=== PATIENT | male | born 1965 | race Caucasian/White ===

== ENCOUNTER 2018-09-23 11:25 | Emergency (ER) | payer SELFPAY ==
[2018-09-23 11:26] VITALS: BP 137/88; PULSE 73; RESP 18; TEMP 36.6; O2SAT 99; BMI 19.2
--- NOTE | 2018-09-23 11:37 | ED.RN ---
pt states has been to [place] emergency department and was then sent to eye dr Yilast week
--- NOTE | 2018-09-23 12:20 | ED.DCSUM_ITS ---
History of Present Illness Chief Complaint: Eye Problem Informant: Patient Location: Left Eye Onset: Weeks - 1 Context: Sudden Onset - injury -- metal dust in eye while sweeping a floor after drilling metal Timing: Continuous Current Severity: Severe Maximum Severity: Severe Worsened by: light Relieved by: nothing Associated Symptoms - Eyes: Drainage, Foreign body sensation, Pain, Photophobia, Redness Visual Changes: left: Blurred vision, Cloudy vision History of injury: Yes, Foreign body Visual correction: - - occasional reading glasses. no contacts. Narrative: Patient states he had this injury 1 week ago today. The next day, he went to the [place] ER. He was sent to an eye doctor and saw him here in [place] the same day, he does not know who it was. He was given a sample bottle of some drops and advised to come back the next day, however the patient states he barely looked at me and thought he was better off letting his eye heal. He states the doctor in the ER used a small device that sounds like a Gonzalez lamp, he found no foreign body, and the eye doctor found no foreign body either. The drops ran out. He states 2 days after seeing the doctor, he physically removed a piece of metal from his eye with his fingers. He got a letter in the mail yesterday, Monday, advising that he return, which he has not done yet. He states now the pain is so severe, that he does not know what else to do. He used to have normal vision in his left eye, now he can see light but can make nothing out because everything is so cloudy/blurry. He is having lots of watering, and it is giving him rhinorrhea and burning in his left naris. He denies any systemic symptoms. He states he feels like there is a lot of pressure in his eye. Past Medical History - Allergies and Home Meds Allergies/Adverse Reactions: Allergies No Known Allergies Allergy (Verified 09/23/18 11:28) Smoking Status: Never smoker Review of Systems General: Denies: Chills, Fever Eyes: Reports: Blurred vision - left - and pain, watering, redness Skin: Denies: Rash, Wounds Neurological: Denies: Headache, Weakness, Numbness Physical Exam Visual Acuity: right: 20/20, 20/50 - OS: fingers at 1-2 feet only Visual Acuity: Uncorrected Eyelid: Left eyelid everted, Erythema left eyelid, - - small flat mettalic FB upper, flowed down to medial canthus Right Conjunctiva/Sclera: Normal inspection Right Cornea: Normal inspection - grossly Left Cornea: Tetracaine instilled - to allow exam, Fluorescein dye uptake - ulcer, Foreign body - several small pieces of shiny metallic FB present -- 2 on ulcer, one on medial upper lid margin, one that flowed from upper medial conj to medial canthus -- all gently removed w/ cotton swab, Ulcer - approx 4-5mm, nasal corneal, w/ mucousy discharge. no dendritic lesions., - - cornea is clouded, making assessment for cell/flare very limited. anterior chamber appears intact, deep. Extraocular Motion: Normal exam, No pain, No palsy Anterior chamber: - - No hyphema. Small hypopyon OS. Vital Signs/Narrative: Vital Signs Temp Pulse Resp BP Pulse Ox 09/23/18 11:26 98 F 73 18 137/88 H 99 General: Well nourished, Well developed Head: Normocephalic, Atraumatic Skin: Normal color, No rash Neurological: Alert, Oriented x3, Cranial nerves II-XII grossly intact, Normal Strength, Normal Sensation Diagnostic/Tx/Re-eval - Treatment and Re-Evaluation Foreign body removal: Cotton tip swab Irrigation: NS Tetracaine: left eye - Medical Decision Making Very concerned about this infected cornea and possibility of endophthalmitis. Discussed immediately with Dr. Jeffers, who came to evaluate the patient in the emergency department. He recommended that we obtain a stat Gram stain and culture of the ulcer, which I did myself gently. Seen by Dr. Jeffers, who states the patient appears to have a bad corneal ulcer, but does not appear to have endophthalmitis and does not require transfer to a higher level of care at this time. He does recommend moxifloxacin drops, which are not available at this hospital so we are giving him a prescription for that, but in case the patient does not fill it, given his history recently of noncompliance, he is also getting ciprofloxacin drops to use here. He is to follow-up with ophthalmology tomorrow in the office, he was given all those instructions already. Procedures Procedure(s): Left eye foreign body removal -- as noted above, after tetracaine topical anesthesia, several small metallic foreign bodies removed gently with cotton swab. Some more embedded in soupy mucousy discharge on the corneal ulcer. Eye was gently flushed with sterile saline afterwards, no Zack lens used. No detectable FB present on reevaluation. ED Disposition - Plan for ED Patient: Disposition: Home or Assisted Living Diagnosis: Corneal ulcer of left eye Instructions: ED Ulcer Cornea Prescriptions: Moxifloxacin Ophthalmic [Vigamox Ophth] 1 drp LEFT EYE . Q1H WHILE AWAKE #1 bottle Referrals: Tom Jeffers MD [STAFF PHYSICIAN] - 1 Day
[2018-09-23] MEDS: Fluorescein 1 MG STRIP 1 STRIP LEFT EYE (13:26)
[2018-09-23] MEDS: Tetracaine 0.5% Ophthalmic Bottle 1 DRP LEFT EYE (13:27)
[2018-09-23] MEDS: Gentamicin Sulfate 1 OPTH.BTL 2 DRP OPHTHALMIC (13:27)
[2018-09-23] MEDS: Ciprofloxacin 0.3% 2.5ml Bottle 2 DRP OPHTHALMIC (13:27)
[2018-09-23 13:35] VITALS: RESP 18
== END 2018-09-23 13:48 | disposition home or self-care (01) ==
PROVIDERS: Emergency Provider Emergency Medicine
DX: H16.002 Unspecified corneal ulcer, left eye (principal)
CPT/HCPCS: 87070; 87075; 87205; 99283; J7040

== ENCOUNTER 2019-02-14 23:14 | Emergency (ER) | payer SELFPAY ==
[2019-02-14 23:14] VITALS: BP 154/96; PULSE 58; RESP 18; TEMP 36.4; O2SAT 99; BMI 18.0
--- NOTE | 2019-02-14 23:25 | US_ITS ---
HISTORY: Right testicular pain for 3 days. Severe today. Pain radiates from right flank. Palpable area. 87 images. Findings: The right testis measures 4.5 x 2.7 x 1.5 cm. Echotexture is homogeneous. Color Doppler images demonstrate flow to right testicular parenchyma. Pulse-wave Doppler images demonstrate arterial flow and suggest probable venous flow as well. The right epididymal head measures 9 x 7 x 10 mm. Color Doppler imaging over the right epididymal head is nondiagnostic for flow. The left testis measures 4.8 x 1.8 x 2.7 cm. Palmer scale imaging of the left testis is homogeneous. Color Doppler images demonstrate flow to the left testicular parenchyma. Pulse-wave Doppler imaging demonstrates arterial flow and suggest venous flow to the left testicular parenchyma. The left epididymal head measures 8 x 8 x 10 mm. Color Doppler imaging over the left epididymal head demonstrates flow. Left varicocele is small. Small left epididymal head cyst. US/Testicular with Arterial Flow IMPRESSION: Normal. The area of palpable abnormality proves to be a 4 mm epididymal head cyst at 0027 Reported and signed by: Greg Dixon MD Electronically Signed: Greg Dixon MD at 0:26 EDT Tel , Service support ,
--- NOTE | 2019-02-14 23:40 | ED.DCSUM_ITS ---
History of Present Illness Chief Complaint: Flank Pain Informant: Patient Narrative: Presents with right-sided testicle pain. Is been bothering for last 3 days. No nausea vomiting. Is also has some pain in his right lower flank rating around his testicle. He denies any swelling. He is never had this before. Denies any urinary symptoms. No history of STD. Current severity is mild to moderate. No home treatment. No history of testicular torsion. No history of epididymitis. No sexual activity for the last 2 months. Past Medical History - Allergies and Home Meds Allergies/Adverse Reactions: Allergies No Known Allergies Allergy (Verified 09/23/18 11:28) Primary Care Physician: Care Physician,No Primary [Primary Care Provider] - Prior records reviewed: Yes Past Medical History: None Surgical History: no surgical history Smoking Status: Never smoker Alcohol: None Drugs: None Review of Systems General: Denies: Chills, Fever, Sweats Eyes: Denies: Visual changes - bilaterally, Diplopia ENT: Denies: Rhinorrhea, Sore throat Cardiovascular: Denies: Chest pain, Palpitations Respiratory: Denies: Dyspnea, Cough, Dyspnea on exertion Gastrointestinal: Reports: Abdominal pain. Denies: Nausea, Vomiting, Diarrhea, Melena, Hematochezia Genitourinary: Reports: - - see hpi. Denies: Dysuria, Hematuria, Frequency Musculoskeletal: Denies: Back pain, Extremity Pain Skin: Denies: Rash, Wounds Neurological: Denies: Headache, Weakness, Numbness Physical Exam Vital Signs/Narrative: Vital Signs Temp Pulse Resp BP Pulse Ox 02/14/19 23:14 97.6 F L 58 L 18 154/96 H 99 General: Well nourished, Well developed, No Acute Distress Head: Normocephalic, Atraumatic Eyes: Perrl, EOMI ENT: Moist mucous membranes, No rhinorrhea Neck: Supple, Nontender Cardiovascular: Regular rate, Regular rhythm, No murmurs Respiratory: No distress, CTA bilaterally, Chest nontender Abdomen: Soft, Nondistended, Normal bowel sounds, Tender - Tenderness right inguinal without hernia. Negative for: Nontender : - - Tenderness in the right epididymis and testicle. Normal lie. Normal cremasteric reflex. No swelling Back: Nontender, Normal Inspection Extremities: Nontender, No edema Skin: Normal color, No rash Neurological: Alert, Oriented x3, Cranial nerves II-XII grossly intact, Normal Strength, Normal Sensation Psychological: Normal affect, Normal Mood Diagnostic/Tx/Re-eval - Medical Decision Making Given a dose of Toradol. Lab work and ultrasound of the testicle obtained. Work shows no acute abnormalities. Urine shows no infection. Thing for gonorrhea and chlamydia is negative. There is no penile lesions. The patient has just tenderness to his epididymis. He has no abnormalities on his ultrasound except for epididymal cyst versus spermatocele. At this time I think this is likely the cause. He will use tight fitting underwear. He will be given a short course of pain medication. His epididymis shows normal size therefore I do not think he has epididymitis. Testicular torsion has been ruled out. He will follow-up with urology ED Disposition - Plan for ED Patient: Disposition: Home or Assisted Living Diagnosis: Spermatocele of epididymis Instructions: Blank Diagnosis Form Prescriptions: Hydrocodone Bitart/Apap 5-325 [[place] 5MG-325MG] 1 - 2 tab PO Q6H PRN PRN 3 Days #10 tab PRN Reason: Pain Prescription Printed Referrals: José Miguel Cervantes MD [STAFF PHYSICIAN] -
[2019-02-14] MEDS: Ketorolac 15 MG/ML Vial IV (23:56)
[2019-02-15 00:11] LABS: Mucous, Urine 0 SEEN /hpf (<or=2+); Red Blood Cells-Urine 0 SEEN /hpf (0-5); White Blood Cells 0 SEEN /hpf (0-5)
[2019-02-15 00:12] LABS: Color, Urine Yellow (Yellow); Glucose, Dipstick Normal (Normal); Ketone-Dipstick Negative (Negative); Leukocyte Esterase-Dipstick Negative /ul (Negative); Nitrite-Dipstick Negative (Negative); Occult Blood-Urine Negative /ul (Negative); Protein-Dipstick Negative (Negative); Urine Bilirubin Dipstick Negative (Negative); Urine Clarity Clear (Clear); Urine Urobilinogen Normal (Normal); Urine pH 6.5 (5.0 - 8.0)
[2019-02-15 00:21] LABS: Absolute Lymphocyte Count 1.87 X10^3/uL (0.83-4.51); Absolute Neutrophil Count 3.8 X10^3/uL (2.0-7.7); Basophil# 0.09 X10^3/uL; Basophil% 1.4 % (0-1); Eosinophil# 0.15 X10^3/uL; Eosinophils% 2.3 % (0-5); Hematocrit 39.1 % (40-54); Lymphocyte # 1.87 X10^3/ul (4.0); Lymphocyte % 28.9 % (19-41); Mean Corp Hgb Conc 33.2 g/dL (32-36); Mean Corpuscular Hgb 30.4 pg (27.0-32.0); Mean Corpuscular Volume 91.6 fL (80-94); Mean Platelet Vol. 10.6 fl (6.2-12.0); Monocyte# 0.54 X10^3/uL; Monocyte% 8.4 % (0-10); NRBC Flagged by Analyzer 0 % (0-5); Neutrophil # 3.79 X10^3/uL (2.7-7.7); Neutrophil % 58.7 % (47-70); Platelet Count 192 K/mm3 (150-450); RBC Distribution Width CV 12.4 % (11.6-14.6); RBC Distribution Width SD 41.5 fl (35.1-43.9); Red Blood Count 4.27 M/mm3 (4.6-6.2); White Blood Count 6.5 K/mm3 (4.4-11.0)
[2019-02-15 00:22] LABS: Bacteria RARE /hpf (None Seen); Squamous Epithelial Cells - UA 0-5 SEEN /hpf (0-5)
[2019-02-15 00:35] LABS: Anion Gap 3 (5-15); BUN 16 mg/dL (7-18); Calcium,Total 8.5 mg/dL (8.5-10.1); Chloride 107 mmol/L (98-107); Creatinine, Serum 0.94 mg/dL (0.70-1.30); EST Glomerular Filtration Rate 89 mL/min (>60); Est Glom Filt Rate - Afr Amer 108 mL/min (>60); Estimated Creatinine Clearance 71.13 ml/min; Glucose 84 mg/dL (74-106); Potassium 4.2 mmol/L (3.5-5.1); Sodium Level 139 mmol/L (136-145)
[2019-02-15 01:14] VITALS: RESP 17
[2019-02-15 01:46] LABS: Chlamydia Trachomatis by PCR Negative (Negative); Neisserai gonorrhoeae by PCR Negative (Negative)
[2019-02-15 01:47] LABS: Probe Check PASS; Sample Adequacy Control PASS; Specimen Processing Control PASS
[2019-02-15 02:04] VITALS: BP 148/78; PULSE 72; RESP 16; O2SAT 97
== END 2019-02-15 02:05 | disposition home or self-care (01) ==
PROVIDERS: Emergency Provider Emergency Medicine
DX: N43.41 Spermatocele of epididymis, single (principal)
CPT/HCPCS: 76870; 80048; 81001; 85025; 87491; 87591; 93976; 96374; 99283; A4216

== ENCOUNTER 2020-12-28 10:21 | Emergency (ER) | payer MEDICAID, SELFPAY ==
[2020-12-28 10:22] VITALS: BP 113/69; PULSE 69; RESP 16; TEMP 36.9; O2SAT 96; BMI 19.1
[2020-12-28 10:24] VITALS: BP 113/69; PULSE 69; RESP 16; TEMP 36.9; O2SAT 96
--- NOTE | 2020-12-28 10:44 | EDS_ITS ---
HPI History of Present Illness Chief Complaint: Other, Pain/Inj Narrative Narrative: 55-year-old male presenting with right inguinal pain. Patient states he had hernia repair by Dr. Garrido in [place] 5 days ago. He does not recall feeling a pop and he states he has been taking it easy postoperatively however that his hernia has returned. Patient states it is tender to palpation in the right inguinal area. He denies nausea or vomiting. He denies fever or chills. There are surgical incision site has not had any sort of infection or bleeding. PFSH PFSH Home Medications oxycodone 5 mg PO Q8H PRN 5 Days #15 cap 12/28/20 [Rx Last Taken Unknown] Allergy/AdvReac Type Severity Reaction Status Date / Time No Known Allergies Allergy Verified 12/28/20 10:24 Social History Smoking Status: Never smoker ROS ROS ED Constitutional Constitutional ED: Denies chills or fever(s) ENT ENT ED: Denies rhinorrhea or sore throat Cardiovascular Cardiovascular: Denies chest pain or palpitations Respiratory/Chest Respiratory/Chest: Denies cough, dyspnea or sputum Gastrointestinal Gastrointestinal: Reports abdominal pain; Denies nausea or vomiting Genitourinary Genitourinary ED: Reports other Details: Right inguinal pain and swelling ; Denies dysuria or hematuria Musculoskeletal Musculoskeletal: Denies arthralgias or myalgias Integumentary Denies abscess or rash EXAM Physical Exam Const Vital Signs: 12/28/20 10:22 12/28/20 10:24 Temperature 98.5 F 98.5 F Temperature Source Temporal Temporal Pulse Rate 69 69 Respiratory Rate 16 16 Blood Pressure 113/69 113/69 Blood Pressure Mean 83 83 Pulse Ox 96 96 Oxygen Delivery Method Room Air Room Air Positive well nourished General Appearance ED: NAD HEENT Reports moist mucous membranes Negative for trauma Eyes PERRL and EOMs intact bilaterally Resp normal respiratory effort and clear to auscultation bilaterally Cardio regular rate and regular rhythm Narrative: Tender mass in right pubic region. This is nonpulsatile. There is no erythema or induration. Neuro oriented x3 Sensorium / Orientation: alert Psych mental status grossly normal Mood & Affect: Negative for depressed or tearful Skin no rashes or lesions noted MDM MDM MDM Narrative Medical decision making narrative: Patient arrives with hernia. I did speak with Dr. Garrido who came to the room and at bedside reduced of the hernia. He will follow up with her outpatient. She will prescribe him pain medication. Patient discharged home in stable condition. Impression: 1. Inguinal hernia Discharge Plan Triage Chief Complaint: Other, Pain/Inj ED Provider: Huseyin Manzo Dx/Rx/DC Orders Instructions: ED Hernia (Adult) Prescriptions: New oxycodone 5 mg capsule 5 mg PO Q8H PRN (Reason: pain) 5 Days Qty: 15 RF: 0 Primary Care Provider: Jena Garrido Referrals: Jena Garrido MD [Primary Care Provider] - Activity Restrictions/Additional Instructions: Recommended pain control regimen - May take 600 mg ibuprofen (Motrin) and then in 3-4 hours, may take 650 mg acetaminophen (Tylenol), then in 3-4 hours may take 600 mg ibuprofen, then in 3- 4 hours may take 650 mg acetaminophen and so on for 2-3 days May take narcotic pain medication for pain that is not controlled by above and at night for comfort through the night Leave dressings in place May shower, do not scrub in the areas of the dressings as they may unravel. Do not soak - no tub baths/swimming Ice applied to areas of discomfort may help as much as tolerated No lifting/pushing/pulling greater than 10 pounds for a month. Regular diet as tolerated, drink plenty of fluids. Use over the counter laxatives as needed. Also consider use of mineral oil - 1 tablespoon 2-3 times per day, this will slick up the stools making them easier to pass. For inguinal hernia repairs - sit in a Lazy-Boy type chair or similar position for comfort and elevate legs, place lots of ice packs in the affected area. If you have scrotal swelling, place a folded towel on top of the upper part of your thighs and place scrotum on top of this to allow for fluid to return back into the torso. Your follow up appointment has already been scheduled. Office number is If any questions, please call my office at and ask the stemming machine operator for the general surgery nurses desk Disposition Disposition: Home, Self Care
[2020-12-28] MEDS: morphine 8 MG/ML Syringe 6 MG IM (10:51)
[2020-12-28 11:59] VITALS: BP 112/64; PULSE 67; RESP 16; O2SAT 98
--- NOTE | 2020-12-28 14:35 | PCM.PN.BLA ---
Progress Note I saw Mr. Jimenez in the ED today. He presents with complaint of right groin swelling since surgery. He underwent right inguinal hernia repair with mesh done on December 24. He states that he has not done any strenuous activity. He notes swelling in the area and pain in the area. When he started noting burning pain, he became concerned and presented to ED. Upon examination, he has swelling in the right groin area, not unlike his initial presentation with a right inguinal hernia prior to surgery. I did a bedside ultrasound of the area, it seems to be a fluid filled pocket. I have reassured patient and his , this is more than likely a large seroma in the area, due to the defect left from having had a large hernia in the area. I have recommended continued copious ice to the area. I have prescribed more pain medications. I have recommended OTC laxatives, patient does admit he has been straining for bowel movements. I will follow along with patient later this week.
--- NOTE | 2020-12-28 14:39 | DCINST_ITS ---
Discharge Instructions Follow Up Care Test Results: This is printed hours later by me due to the slowness of the [employer] system Discharge Plan Triage Chief Complaint: Other, Pain/Inj ED Provider: Huseyin Manzo Dx/Rx/DC Orders Instructions: ED Hernia (Adult) Prescriptions: New oxycodone 5 mg capsule 5 mg PO Q8H PRN (Reason: pain) 5 Days Qty: 15 RF: 0 Primary Care Provider: Jena Garrido Referrals: Jena Garrido MD [Primary Care Provider] - Activity Restrictions/Additional Instructions: Recommended pain control regimen - May take 600 mg ibuprofen (Motrin) and then in 3-4 hours, may take 650 mg acetaminophen (Tylenol), then in 3-4 hours may take 600 mg ibuprofen, then in 3- 4 hours may take 650 mg acetaminophen and so on for 2-3 days May take narcotic pain medication for pain that is not controlled by above and at night for comfort through the night Leave dressings in place May shower, do not scrub in the areas of the dressings as they may unravel. Do not soak - no tub baths/swimming Ice applied to areas of discomfort may help as much as tolerated No lifting/pushing/pulling greater than 10 pounds for a month. Regular diet as tolerated, drink plenty of fluids. Use over the counter laxatives as needed. Also consider use of mineral oil - 1 tablespoon 2-3 times per day, this will slick up the stools making them easier to pass. For inguinal hernia repairs - sit in a Lazy-Boy type chair or similar position for comfort and elevate legs, place lots of ice packs in the affected area. If you have scrotal swelling, place a folded towel on top of the upper part of your thighs and place scrotum on top of this to allow for fluid to return back into the torso. Your follow up appointment has already been scheduled. Office number is If any questions, please call my office at and ask the reciprocating drill operator for the general surgery nurses desk Disposition Disposition: Home, Self Care Discharge Date/Time: 12/28/20 12:02
== END 2020-12-28 12:02 | disposition home or self-care (01) ==
PROVIDERS: Emergency Provider Student in an Organized Health Care Education/Training Program; PCP Surgery
DX: K40.90 Unilateral inguinal hernia, without obstruction or gangrene, not specified as recurrent (principal)
CPT/HCPCS: 96372; 99282

== ENCOUNTER 2021-01-14 12:20 | Day surgery (SDC) | payer MEDICAID, SELFPAY ==
--- NOTE | 2021-01-12 19:11 | PCM.HP.BLA ---
History and Physical Date of Admission: 01/14/21 HISTORY AND PHYSICAL Amarjit Holguin Arms 1965 CHIEF COMPLAINT: possible recurrent RIH ? HPI: The patient is a 55 year old male presents with right groin swelling, he is s/p right inguinal hernia repair with mesh on 12/24/2020 This may be a recurrence. He has consented to inguinal exploration and possible recurrent right inguinal hernia repair. He denies obstructive GI/ symptoms.. PAST MEDICAL HISTORY GERD (gastroesophageal reflux disease) ? PAST SURGICAL HISTORY see above ? ? ? PAST INJURIES Right chest blunt trauma/multiple rib fractures, closed head injury, right shoulder dislocation Current Outpatient Medications acetaminophen-codeine (TYLENOL-COD #3) 300-30 mg per tablet Take 1 tablet by mouth every 6 hours as needed for Pain. gabapentin (NEURONTIN) 300 mg capsule Take 1 capsule by mouth three times daily. tiZANidine HCl (ZANAFLEX) 4 mg capsule Take 1 capsule by mouth three times daily as needed. amitriptyline (ELAVIL) 10 mg tablet Take 1 tablet by mouth daily at bedtime. omeprazole (PRILOSEC) 10 mg capsule Take 1 capsule by mouth once daily. thiamine (VITAMIN B1) 50 mg tablet Take 1 tablet by mouth once daily. cyanocobalamin (VITAMIN B-12) 1,000 mcg tab Take 1,000 mcg by mouth once daily. ALLERGIES: Patient has no known allergies. PERSONAL HISTORY: Tobacco Use ? Smoking status: Never Smoker ? Smokeless tobacco: Never Used Substance Use Topics ? Alcohol use: No? ? Comment: no etoh for five months ? Drug use: No FAMILY HISTORY Alcohol/Drug Father ? REVIEW OF SYSTEMS: General: The patient denies fatigue, NOTES weight loss, denies weight gain, denies feeling hot, and denies feelings of cold. Eyes: The patient denies glaucoma, NOTES eye injury/surgery, does not wear glasses or contacts. Ear/Nose/Throat: The patient denies allergies, denies hayfever, denies ear infections, and denies bloody noses. Cardiovascular: The patient denies chest pain, denies heart disease, denies high blood pressure,denies cardiac stent, denies prior heart attack, denies irregular heart beat, denies high cholesterol, denies poor circulation, denies heart failure, other cardiac issues, denies claudication, denies cold feet, denies peripheral arterial stent. Respiratory: The patient denies tuberculosis, denies pneumonia, denies frequent cough, denies pulmonary embolism, denies shortness of breath, and denies coughing up blood. Gastrointestinal: The patient denies difficulty swallowing, denies acid reflux, denies ulcers, denies vomiting, denies jaundice/hepatitis, denies gallbladder problems, denies black or tarry stools, denies hemorrhoids, denies bleeding from rectum, denies diverticulitis, NOTES constipation, denies diarrhea, denies loss of stool control, and denies hernias. Kidney/Bladder: The patient denies kidney stones, denies urine infections, and denies bloody urine. Skin: The patient denies a history of skin cancer, denies bleeding/changing moles, and denies a history of skin rash. Neurologic: The patient denies a history of epilepsy/convulsions, denies headaches, denies head/spinal injuries, and denies stroke/TIA. Psychiatric: The patient denies psychiatric medications, NOTES depression, and denies voices, denies substance abuse. Endocrine: The patient denies thyroid disorders, denies diabetes, and denies hormonal problems. Hematologic: The patient denies a history of bruising, denies bleeding, and denies anemia, denies blood clots. Infections: The patient NOTES a history of measles and mumps, denies rheumatic fever, and denies sexually transmitted diseases. Musculoskeletal: The patient NOTES back pain/injury, NOTES back problems, denies sciatica, NOTES knee/foot trouble, NOTES arthritis, or denies gout. ? PHYSICAL EXAMINATION: General: The patient is 55 year old male, well nourished, well hydrated in no acute distress. The patient is oriented to time, place, and person. VITALS: Blood pressure 118/62, pulse 90, temperature 37 ?C (98.6 ?F), height 175.3 cm (5' 9), weight 53.5 kg (118 lb), SpO2 98 %. Body mass index is 17.43 kg/m?. Head ? Normocephalic. EOM intact with sclera clear and no icterus noted. Neck - full range of motion, supple with no jugular venous distention noted. Trachea is midline. Lungs ? left chest wall deformity, normal breath sounds. No rales/rhonchi/wheezing noted. No labored breathing noted, such as retractions. No cough heard. Heart ? normal S1 and S2 auscultated. No rubs/clicks/murmurs noted. Regular rate. Abdomen ? soft and benign. Normal bowel sounds. No abdominal bruits noted. Genitalia ? normal male phallus, testes in normal anatomical position and no masses noted, possible inguinal hernia - not reducible, no left inguinal hernia noted even with valsalva-like maneuvers Extremities ? no calf tenderness noted. No pitting edema noted. Skin ? normal skin integrity. Neurological ? gait normal, no focal deficits noted. Psych ? calm and appropriate ? IMPRESSION: right inguinal hernia repair ? PLAN: I have discussed the above with the patient and his who is present with him. I have offered right inguinal exploration - possible recurrent right inguinal hernia repair with mesh I have explained the procedure to the patient. I have counseled the patient as to the risks of the procedure, including but not limited to: infection, bleeding, injury to any blood vessels/nerves, scar tissue, injury to bowel/bladder, injury to the spermatic cord and/or testicle, chronic groin pain, recurrence of hernia, wound infections, complications of anesthesia, etc. ? the patient understands. The patient wishes to proceed. I have answered all questions to the patient?s satisfaction and the patient has no further questions. Return to Clinic: The patient is instructed to follow-up with me after the procedure ? Jena Garrido MD HISTORY AND PHYSICAL ? Amarjit Jimenez 1965 ? ? REFERRING PHYSICIAN: MD Jhon ? CHIEF COMPLAINT: Consult (Possible Right Inguinal Hernia) ? HPI: The patient is a 55 year old male presents with right inguinal hernia. He has noted the hernia for the past 6 months and it has been enlarging. He denies incarceration, but he does not increasing difficulty to reduce the hernia. He also notes difficulties with bowel evacuation and urination when the hernia is protruding. He has had multiple traumas but doesn't like to see a doctor. He takes marijuana on a daily basis for musculoskeletal pain, but denies using any other drugs He denies TOB use. He does not want the COVID vaccine. ? ? PAST MEDICAL HISTORY Diagnosis Date ? GERD (gastroesophageal reflux disease) ? ? PAST SURGICAL HISTORY Procedure Laterality Date ? NONE ? PAST INJURIES Right chest blunt trauma/multiple rib fractures, closed head injury, right shoulder dislocation ? ? Current Outpatient Medications Medication Sig ? acetaminophen-codeine (TYLENOL-COD #3) 300-30 mg per tablet Take 1 tablet by mouth every 6 hours as needed for Pain. ? gabapentin (NEURONTIN) 300 mg capsule Take 1 capsule by mouth three times daily. ? tiZANidine HCl (ZANAFLEX) 4 mg capsule Take 1 capsule by mouth three times daily as needed. ? amitriptyline (ELAVIL) 10 mg tablet Take 1 tablet by mouth daily at bedtime. ? omeprazole (PRILOSEC) 10 mg capsule Take 1 capsule by mouth once daily. ? thiamine (VITAMIN B1) 50 mg tablet Take 1 tablet by mouth once daily. ? cyanocobalamin (VITAMIN B-12) 1,000 mcg tab Take 1,000 mcg by mouth once daily. ? ? ALLERGIES: Patient has no known allergies. ? PERSONAL HISTORY: Social History ? Tobacco Use ? Smoking status: Never Smoker ? Smokeless tobacco: Never Used Substance Use Topics ? Alcohol use: No ? ? Comment: no etoh for five months ? Drug use: No FAMILY HISTORY Problem Relation Age of Onset ? Alcohol/Drug Father ? ? The review of systems data was entered by the nurse and reviewed by me ? Nursing Notes: Oneida Cohen LPN 12/16/2020 4:16 PM Signed REVIEW OF SYSTEMS: General: The patient denies fatigue, NOTES weight loss, denies weight gain, denies feeling hot, and denies feelings of cold. Eyes: The patient denies glaucoma, NOTES eye injury/surgery, does not wear glasses or contacts. Ear/Nose/Throat: The patient denies allergies, denies hayfever, denies ear infections, and denies bloody noses. Cardiovascular: The patient denies chest pain, denies heart disease, denies high blood pressure,denies cardiac stent, denies prior heart attack, denies irregular heart beat, denies high cholesterol, denies poor circulation, denies heart failure, other cardiac issues, denies claudication, denies cold feet, denies peripheral arterial stent. Respiratory: The patient denies tuberculosis, denies pneumonia, denies frequent cough, denies pulmonary embolism, denies shortness of breath, and denies coughing up blood. Gastrointestinal: The patient denies difficulty swallowing, denies acid reflux, denies ulcers, denies vomiting, denies jaundice/hepatitis, denies gallbladder problems, denies black or tarry stools, denies hemorrhoids, denies bleeding from rectum, denies diverticulitis, NOTES constipation, denies diarrhea, denies loss of stool control, and denies hernias. Kidney/Bladder: The patient denies kidney stones, denies urine infections, and denies bloody urine. Skin: The patient denies a history of skin cancer, denies bleeding/changing moles, and denies a history of skin rash. Neurologic: The patient denies a history of epilepsy/convulsions, denies headaches, denies head/spinal injuries, and denies stroke/TIA. Psychiatric: The patient denies psychiatric medications, NOTES depression, and denies voices, denies substance abuse. Endocrine: The patient denies thyroid disorders, denies diabetes, and denies hormonal problems. Hematologic: The patient denies a history of bruising, denies bleeding, and denies anemia, denies blood clots. Infections: The patient NOTES a history of measles and mumps, denies rheumatic fever, and denies sexually transmitted diseases. Musculoskeletal: The patient NOTES back pain/injury, NOTES back problems, denies sciatica, NOTES knee/foot trouble, NOTES arthritis, or denies gout. When was patient's last Mammogram screening? N/A Last Colonoscopy: None Oneida Cohen LPN ? ? PHYSICAL EXAMINATION: General: The patient is 55 year old male, well nourished, well hydrated in no acute distress. The patient is oriented to time, place, and person. VITALS: Blood pressure 118/62, pulse 90, temperature 37 ?C (98.6 ?F), height 175.3 cm (5' 9), weight 53.5 kg (118 lb), SpO2 98 %. Body mass index is 17.43 kg/m?. ? Head ? Normocephalic. EOM intact with sclera clear and no icterus noted. Neck - full range of motion, supple with no jugular venous distention noted. Trachea is midline. Lungs ? left chest wall deformity, normal breath sounds. No rales/rhonchi/wheezing noted. No labored breathing noted, such as retractions. No cough heard. Heart ? normal S1 and S2 auscultated. No rubs/clicks/murmurs noted. Regular rate. Abdomen ? soft and benign. Normal bowel sounds. No abdominal bruits noted. Genitalia ? normal male phallus, testes in normal anatomical position and no masses noted, right inguinal hernia - reducible, no left inguinal hernia noted even with valsalva-like maneuvers Extremities ? no calf tenderness noted. No pitting edema noted. Skin ? normal skin integrity. Neurological ? gait normal, no focal deficits noted. Psych ? calm and appropriate ? ? Assessment IMPRESSION: right inguinal hernia repair ? PLAN: I have discussed the above with the patient and his who is present with him. I have offered right inguinal hernia repair with mesh I have explained the procedure to the patient. I have counseled the patient as to the risks of the procedure, including but not limited to: infection, bleeding, injury to any blood vessels/nerves, scar tissue, injury to bowel/bladder, injury to the spermatic cord and/or testicle, chronic groin pain, recurrence of hernia, wound infections, complications of anesthesia, etc. ? the patient understands. The patient wishes to proceed. Plan surgery for December 24 at [facility]. ? ? I have answered all questions to the patient?s satisfaction and the patient has no further questions. ? I have confirmed and edited as necessary, the PFSH and ROS obtained by others. Return to Clinic: The patient is instructed to follow-up with me after the procedure ? Jena Garrido MD
[2021-01-14] VITALS (8 sets, daily range): BP systolic 106–149; BP diastolic 73–91; PULSE 44–71; RESP 14–16; TEMP 36–36.6; O2SAT 95–99; BMI 17.4
--- NOTE | 2021-01-14 | TISS_PTH ---
PATIENT: TABATHA LILLY [place] [facility] [place][id number] AGE/SX: 55/M ROOM: RE01/14/[address]: Dr. Jena Garrido MD : 1965 BED: DIS: 01/14/2021 SPEC #: [id number] RECD: 01/14/21 14:20 STATUS: RADHA HIPOLITO #: [id number] NEETA: 01/14/21 00:[address]: Jena Garrido DEPT: SURGICAL PATHOLOGY RECD BY: Naa Wesley ENTERED: 01/14/21 15:40 SP TYPE: Tissue Bx OT DR: No Primary Care Phys Tissues: TISSUE SURGICALLY REMOVED Procedures: Frozen Section (charge) Surgery Specimen Level II Surgery Specimen Level IV HEADER OPERATION: Hydrocelectomy PRE-OP DIAGNOSIS: Right inguinal hernia TISSUE SUBMITTED: A ? Hydrocele versus bowel, FS, B ? Hydrocele sac FROZEN SECTION DIAGNOSIS A. Hydrocele versus bowel: A piece of fibrous tissue. Bowel mucosa is not seen. SJ:joan 01/14/2021 MICROSCOPIC DIAGNOSIS A. Hydrocele versus bowel, biopsy: Fibrovascular tissue with minimal chronic inflammation. See comment. B. Hydrocele sac, hydrocelectomy: Consistent with inflamed fibrous walled cyst. AM:joan 01/18/2021 COMMENT A & Bowel is not identified. A hernia sac is likely. Clinical correlation is necessary. Case has been reviewed in consultation with Dr. Kessler who concurs with the above diagnosis. IDC:MIAN MICROSCOPIC DESCRIPTION Slides are reviewed. GROSS DESCRIPTION A - Received fresh for frozen section diagnosis labeled with the patient's name is a specimen designated hydrocele versus bowel. The specimen consists of a piece of soft tissue measuring 1.5 x 2 x 0.5 cm. The entire specimen is submitted for frozen section diagnosis in one cassette. B - Received in fixative is one container labeled with the patient's name and designated hydrocele sac. The specimen consists of a pink, congested sac of soft tissue measuring 5 cm in length and 3 cm in diameter. The inner cyst wall is congested. Scratch Brusher sections are submitted in two cassettes. / SJ:joan 01/15/21 TC:5 CPT: 19067, 52658, 91231
[2021-01-14] MEDS: Lactated Ringers 1,000 ML 75 ML IV (07:00)
--- NOTE | 2021-01-14 12:32 | EKG12_ITS ---
Test Reason : PREOP Blood Pressure : / mmHG Vent. Rate : 061 BPM Atrial Rate : 061 BPM P-R Int : 170 ms QRS Dur : 080 ms QT Int : 424 ms P-R-T Axes : 081 076 082 degrees QTc Int : 426 ms Sinus rhythm with Premature atrial complexes Otherwise normal ECG No previous ECGs available Confirmed by AYALA FERNANDES, TREV ([id number]), mapping editor JIMBO ORTIZ ([id number]) on 01/19/2021 9:47:20 AM Referred By: No Primary Care Physician Confirmed By:TREV CAI MD
[2021-01-14] MEDS: Cefazolin 2 GM in 0.9% Normal Saline 100 ML IV (13:35)
[2021-01-14] MEDS: Lidocaine 1% /Epi 1:100 (50ml) 50 ML VIAL (15:00)
[2021-01-14] MEDS: Bupivacaine 0.25% 30 ML Vial (15:00)
--- NOTE | 2021-01-14 15:08 | PCM.OPRPT ---
Report of Operation Date of Procedure: 01/14/21 Pre-Operative Diagnosis: right groin swelling and pain, s/p inguinal hernia repair Post-Operative Diagnosis: right groin hydrocoele Surgery/Procedure Performed:: right hydrocoelectomy Description of Surgical Findings:: large right hydrodoele sac that was closed off Surgeon: Jena Garrido computerized mill mill recorder: Latosha Pereyra Type of Anesthesia: MAC/Supplemental/Local Specimen's removed: hydrocoele sac Estimated Blood Loss (mL): 10 ml Fluids Replaced: 1000 ml Description of Procedure: After informed consent was obtained, the patient was brought to the Operating Room. Appropriate time out protocol was followed. He was placed in the supine position on the operating room table. The patient was then placed under anesthesia. The right groin area and lower torso and genitalia were then prepped with a sterile surgical skin preparation. Sterile surgical drapes were placed. This skin and subcutaneous tissues were then widely infiltrated with the local anesthetic. A skin incision was then made with a 15 blade scalpel over the right groin swelling following along the anatomy of the inguinal canal in a transverse oblique fashion.. The incision was carried down to the subcutaneous tissues using sharp dissection. Any hemorrhage was adequately controlled with electrocautery. Division of the tissues along the incision line continued down to the external oblique fascia was identified. It was then divided along its fibers using sharp dissection carefully avoiding any injury to any blood vessels/nerves. The spermatic cord was then isolated using blunt dissection and tagged with a [place] drain. There was no hernia defect noted, but the patient was noted to have a very swollen spermatic cord with a large vesicle. This large vesicle was then carefully from the spermatic cord and because of the inflammation, there was inflammatory oozing. The vesicle was carefully from the surrounding structures and seemed to end at the entrance of the internal inguinal ring. That is, there was no lumen into the abdominal cavity. Distally, it ended in a blind pouch. It was then opened and there was serous yellow fluid within it. It was not certain what this structure was and therefore a portion of this was forwarded to pathology for frozen section to rule out possible enterocoele/small bowel/etc. The pathology returned as a fibrous capsule, this was therefore probably a hydroceole. The hydrocoele was from the surrounding structures and then at the level of the internal inguinal ring, it was ligated with a purse string suture of 3-0 vicryl. The excess sac was then transected and forwarded to pathology for analysis. The inguinal canal floor was palpated - no defect was noted. The spermatic cord was then replaced in its proper anatomical position. Hemostasis was achieved with electrocautery and surgicel. The external oblique fascia was then reapproximated over the spermatic cord to close the roof of the inguinal canal with a running 0 vicryl suture. Morelia's fascia was reapproximated with interrupted 3-0 vicryl sutures. The skin incision was reapproximated with a running 4-0 Monocryl suture. Cavilon and steristrips were placed to reinforce the skin closure and a sterile opsite dressing was applied. The patient was brought from to the Recovery Room in stable condition. Complications none noted Admit VTE Documentation VTE Present on Admission: Yes VTE Mechan Device Prophylaxis: SCD's
--- NOTE | 2021-01-14 16:19 | DCINST_ITS ---
Discharge Instructions Follow Up Care Test Results: Test results from this visit will be discussed in further detail at your follow-up appointment, if applicable. Discharge Plan Admission Attending Provider: Jena Garrido Primary Care Provider: Care Physician,Lia Primary Instructions Additional Instructions / Restrictions: Recommended pain control regimen - May take 600 mg ibuprofen (Motrin) and then in 3-4 hours, may take 650 mg acetaminophen (Tylenol), then in 3-4 hours may take 600 mg ibuprofen, then in 3- 4 hours may take 650 mg acetaminophen and so on for 2-3 days May take narcotic pain medication for pain that is not controlled by above and at night for comfort through the night Leave dressings in place May shower, do not scrub in the areas of the dressings as they may unravel. If they become overly soiled you may remove them but leave incision site open to air. Do not soak - no tub baths/swimming Ice applied to areas of discomfort may help No lifting/pushing/pulling greater than 10 pounds for a month. Regular diet as tolerated, drink plenty of fluids. For inguinal hernia repairs - sit in a Lazy-Boy type chair or similar position for comfort and elevate legs, place ice packs in the affected area. If you have scrotal swelling, place a folded towel on top of the upper part of your thighs and place scrotum on top of this to allow for fluid to return back into the torso. Please call my office for an appointment to see me in 1-2 weeks. Office number is If any questions, please call my office at and ask the safety grooving machine operator for the general surgery nurses desk Discharge Orders/Prescriptions Prescriptions: New oxycodone 5 mg capsule 5 mg PO Q8H PRN (Reason: pain) 5 Days Qty: 15 RF: 0 No Action oxycodone 5 mg capsule 5 mg PO Q8H PRN (Reason: pain) 5 Days Qty: 15 RF: 0 Referrals / Follow Up: Care Physician,Lia Primary [Primary Care Provider] - Disposition Disposition (needs filled in before D/C Order can be placed): Home, Self Care
[2021-01-14] MEDS: HYDROcodone Bitartrate/Apap 5/325 Tablet PO (16:33)
== END 2021-01-14 16:56 | disposition home or self-care (01) ==
LOC: SDC 12:21 → AC 12:59
PROVIDERS: Visit Provider Surgery
PROC: (CPT 55500; principal; 2021-01-14 12:45)
DX: N43.3 Hydrocele, unspecified (principal); K21.9 Gastro-esophageal reflux disease without esophagitis; K40.90 Unilateral inguinal hernia, without obstruction or gangrene, not specified as recurrent; Z63.72 Alcoholism and drug addiction in family; Z79.899 Other long term (current) drug therapy; F12.90 Cannabis use, unspecified, uncomplicated
CPT/HCPCS: 00860; 55500; 87426; 88302; 88305; 88331; 93005; J7120; J2405

== ENCOUNTER 2021-02-13 06:56 | Emergency (ER) | payer MEDICAID, SELFPAY ==
[2021-02-13 06:57] VITALS: BP 119/91; PULSE 69; RESP 22; TEMP 36.5; O2SAT 100; BMI 18.0
[2021-02-13 07:01] VITALS: BP 119/91; PULSE 69; RESP 22; TEMP 36.5; O2SAT 100
--- NOTE | 2021-02-13 07:08 | RAD_ITS ---
STUDY: X-RAY CHEST REASON FOR EXAM: Male, 55 years old. sob TECHNIQUE: Single AP portable view of the chest. COMPARISON: None. FINDINGS: The lungs are clear and expanded. There is no demonstrated pleural abnormality. Normal size heart. Normal mediastinum and jorge. Normal visualized pulmonary arteries. Normal visualized aortic arch and descending thoracic aorta. Normal visualized thoracic spine. Normal visualized ribs, clavicles, and shoulders. There is no demonstrated abnormality of the visualized soft tissue structures of the upper abdomen. RAD/Chest 1 View (Portable) IMPRESSION: Normal x-ray examination of the chest. Electronically Signed: Romaine Pierre MD at 7:56 EDT Tel , Service support ,
--- NOTE | 2021-02-13 07:09 | EKG12_ITS ---
Test Reason : SOB Blood Pressure : / mmHG Vent. Rate : 064 BPM Atrial Rate : 064 BPM P-R Int : 168 ms QRS Dur : 080 ms QT Int : 412 ms P-R-T Axes : 081 065 087 degrees QTc Int : 425 ms Normal sinus rhythm Normal ECG Confirmed by ANTHONY FERNANDES, SHAE ([id number]), homebirth midwife JIMBO ORTIZ ([id number]) on 02/17/2021 9:08:18 AM Referred By: MILTON Confirmed By:SHAE CRUZ MD
--- NOTE | 2021-02-13 07:10 | EDS_ITS ---
HPI History of Present Illness Chief Complaint: Shortness of Breath Informant: patient Onset/Context/Timing Onset: Days Context: Gradual Onset Current Severity: Mild Maximum Severity: Moderate Narrative Narrative: Patient presents secondary to shortness of breath. He states feeling ill for the last 3 days or so. That yesterday symptoms got worse with increased shortness of breath. He has a mild dry cough. He reports pain in the bilateral hands with some body aches and subjective chills. He does report some difficulty swallowing but denies sore throat. He did not receive the Covid vaccine. He has no known exposures to Covid. No DVT risk factors. [facility] Medical History Alcohol use Injury of head and neck Marijuana use Restless legs Home Medications dexamethasone [Decadron] 6 mg PO DAILY #9 tab 02/13/21 [Rx Last Taken Unknown] Allergy/AdvReac Type Severity Reaction Status Date / Time No Known Allergies Allergy Verified 02/13/21 06:59 Surgical History Hx of right inguinal hernia repair Social History Smoking Status: Never smoker ROS ROS ED Constitutional Constitutional ED: Reports chills; Denies fever(s) Eyes Eyes: Denies change in vision ENT ENT ED: Denies sore throat Cardiovascular Cardiovascular: Denies chest pain Respiratory/Chest Respiratory/Chest: Reports cough and dyspnea; Denies sputum Gastrointestinal Gastrointestinal: Denies abdominal pain, diarrhea, nausea or vomiting Genitourinary Genitourinary ED: Denies dysuria Musculoskeletal Musculoskeletal: Reports myalgias; Denies back pain Integumentary Denies rash Neurologic Neurologic: Denies headache(s), paresthesias or weakness Psychiatric Psychiatric: Denies anxiety or depression Allergic/Immunologic Allergic/Immunologic ED: Denies urticaria EXAM Physical Exam Const Vital Signs: 02/13/21 06:57 02/13/21 07:01 Temperature 97.7 F L 97.7 F L Temperature Source Temporal Temporal Pulse Rate 69 69 Respiratory Rate 22 H 22 H Respiratory Effort Short of Breath Blood Pressure 119/91 H 119/91 H Blood Pressure Mean 100 100 Pulse Ox 100 100 Oxygen Delivery Method Room Air Positive well nourished and well developed General Appearance ED: well developed HEENT Reports normocephalic and head/scalp atraumatic Eyes PERRL and EOMs intact bilaterally Neck supple Chest Wall inspection of chest normal and palpation of chest normal Resp normal respiratory effort and clear to auscultation bilaterally Cardio regular rate and regular rhythm GI normal to inspection, nondistended, normoactive bowel sounds and non-tender Palpation: soft Extremity normal to inspection Neuro oriented x3 and no sensory deficits noted Sensorium / Orientation: alert Motor Exam: strength 5/5 throughout Psych mental status grossly normal Skin no rashes or lesions noted MDM MDM MDM Narrative Medical decision making narrative: Lab work, EKG, chest x-ray, Covid swab obtained. Lab Data Attestation: I reviewed the patient's lab results. Labs: Laboratory Results - last 24 hr 02/13/21 02/13/21 02/13/21 07:05 07:05 07:18 WBC 2.7 L RBC 4.87 Hgb 14.0 Hct 42.8 MCV 87.9 MCH 28.7 MCHC 32.7 RDW Std Deviation 42.8 RDW Coeff of Kira 13.2 Plt Count 121 L MPV 11.8 Immature Gran % (Auto) 0.000 Neut % (Auto) 39.2 L Lymph % (Auto) 42.2 H Gila % (Auto) 15.6 H Eos % (Auto) 1.9 Baso % (Auto) 1.1 H Absolute Neuts (auto) 1.1 L Absolute Lymphs (auto) 1.14 Nucleated RBC % 0 D-Dimer Quant (PE/DVT) 0.29 Sodium 137 Potassium 3.7 Chloride 102 Carbon Dioxide 28.0 Anion Gap 7 BUN 11 Creatinine 0.77 Estim Creat Clear Calc 84.84 Est GFR (MDRD) Af Amer 135 Est GFR (MDRD) Non-Af 111 BUN/Creatinine Ratio 14.3 Glucose 71 L Calcium 9.0 Troponin I High Sens 6 Rapid Covid swab positive Radiography Chest X-Ray - ED: 1 View, Read by ED Physician, Normal, Heart, Lungs and Mediastinum Diagnostic Testing: Radiology Impression Chest X-Ray 02/13/21 07:08 IMPRESSION: Normal x-ray examination of the chest. Electronically Signed: Romaine Pierre MD at 7:56 EDT Tel , Service support , EKG Initial EKG: Attestation: I personally reviewed and interpreted this EKG as follows: Interpretation: Sinus Rhythm (Sinus at 64 with no acute ischemia.) Treatment and Re-Evaluation Comments:: Chest x-ray per my interpretation reveals no focal infiltrate. Radiologist rotation reviewed. Lab work is reviewed and significant for leukopenia likely secondary to viral syndrome. D-dimer negative. Troponin negative. Patient's Covid swab does return positive. Test results discussed with patient and significant other at bedside. He will quarantine and be treated with a course of Decadron, first dose here. Return instructions provided. Discharge Plan Triage Chief Complaint: Shortness of Breath ED Provider: Afia Oliva Dx/Rx/DC Orders Clinical Impression: COVID-19 Instructions: Coronavirus Disease 2019 (COVID-19): Overview, Coronavirus Disease 2019 (COVID-19): Caring for Yourself or Others Prescriptions: New dexamethasone [Decadron] 6 mg tablet 6 mg PO DAILY Qty: 9 RF: 0 Primary Care Provider: Care Physician,No Primary Referrals: Renetta Craig MD [STAFF PHYSICIAN] - As Needed Care Physician,No Primary [Primary Care Provider] - Disposition Disposition: Home, Self Care
[2021-02-13 07:20] LABS: Absolute Lymphocyte Count 1.14 X10^3/uL (0.83-4.51); Absolute Neutrophil Count 1.1 X10^3/uL (2.0-7.7); Basophil# 0.03 X10^3/uL; Basophil% 1.1 % (0-1); Eosinophil# 0.05 X10^3/uL; Eosinophils% 1.9 % (0-5); Hematocrit 42.8 % (40-54); Lymphocyte # 1.14 X10^3/ul (0.83-4.51); Lymphocyte % 42.2 % (19-41); Mean Corp Hgb Conc 32.7 g/dL (32-36); Mean Corpuscular Hgb 28.7 pg (27.0-32.0); Mean Corpuscular Volume 87.9 fL (80-94); Mean Platelet Vol. 11.8 fl (6.2-12.0); Monocyte# 0.42 X10^3/uL; Monocyte% 15.6 % (0-10); NRBC Flagged by Analyzer 0 % (0-5); Neutrophil # 1.06 X10^3/uL (2.7-7.7); Neutrophil % 39.2 % (47-70); Platelet Count 121 K/mm3 (150-450); RBC Distribution Width CV 13.2 % (11.6-14.6); RBC Distribution Width SD 42.8 fl (35.1-43.9); Red Blood Count 4.87 M/mm3 (4.6-6.2); White Blood Count 2.7 K/mm3 (4.4-11.0)
[2021-02-13 07:39] LABS: D-Dimer Quantitative (DVT/PE) 0.29 FEU/ug/m (0.27-0.49)
[2021-02-13 07:41] LABS: Anion Gap 7 (5-15); BUN 11 mg/dL (7-18); BUN/Creat Ratio 14.3 RATIO (10-20); Chloride 102 mmol/L (98-107); Creatinine, Serum 0.77 mg/dL (0.70-1.30); EST Glomerular Filtration Rate 111 mL/min (>60); Est Glom Filt Rate - Afr Amer 135 mL/min (>60); Estimated Creatinine Clearance 84.84 ml/min; Glucose 71 mg/dL (74-106); Potassium 3.7 mmol/L (3.5-5.1); Sodium Level 137 mmol/L (136-145); Troponin-I HS 6 pg/mL (3.0-78.0)
[2021-02-13] MEDS: dexAMETHasone 4 MG Tablet 6 MG PO (08:21)
[2021-02-13 08:29] VITALS: BP 126/81; PULSE 65; RESP 19; TEMP 36.3; O2SAT 99
--- NOTE | 2021-02-13 08:30 | ED.RN ---
REVIEWED D/C INSTRUCTIONS, FOLLOW UP CARE, PRESCRIPTION, AND S/S THAT WOULD WARRANT A RETURN TO THE ED WITH PT. PT VERBALIZED AN UNDERSTANDING AND DENIES FURTHER QUESTIONS FOR THIS RN. PT SKIN P/W/D, RESP EVEN AND UNLABORED, PT A&O X 3, NO DISTRESS NOTED. PT AMBULATED OUT OF ED, GAIT STEADY.
== END 2021-02-13 08:31 | disposition home or self-care (01) ==
PROVIDERS: Emergency Provider Emergency Medicine
DX: U07.1 COVID-19 (principal); Z79.52 Long term (current) use of systemic steroids
CPT/HCPCS: 71045; 80048; 84484; 85025; 85379; 87426; 93005; 99285; A4216

== ENCOUNTER 2021-08-23 09:35 | Emergency (ER) | payer MEDICAID, SELFPAY ==
[2021-08-23 09:36] VITALS: BP 136/91; PULSE 79; RESP 16; TEMP 36.4; O2SAT 95; BMI 20.9
[2021-08-23 09:44] VITALS: BP 134/78; PULSE 80; RESP 16; TEMP 36.6
--- NOTE | 2021-08-23 10:34 | EDS_ITS ---
HPI History of Present Illness Chief Complaint: General Illness Informant: patient Onset/Context/Timing Onset: Yesterday Context: Gradual Onset Timing: Continuous Quality: Achy malaise Location: All over Current Severity: Moderate Maximum Severity: Moderate Worsened by: Nothing Relieved by: Nothing but has not tried any medications Associated Symptoms Associated Symptoms: Headache, cough, breathing harder than normal Associated Symptoms ED: cough Narrative Narrative: Patient complains of a global gradual onset achy headache, nonproductive cough, congestion, body aches, sore throat, subjective fevers, and breathing harder than normal but denies any patricia dyspnea. No known sick contacts recently. States he had Covid at 1 point in the past, has not been vaccinated. Denies being a smoker. Denies any earache, focal neurologic symptoms, neck stiffness, confusion. No chest pain or abdominal pain. Has had a couple episodes of vomiting, no blood, no diarrhea. [facility] Medical History Alcohol use Injury of head and neck Marijuana use Restless legs Home Medications cyanocobalamin-liver extract [Vitamin [id number]] 1 tab PO DAILY 08/23/21 [History Last Taken Unknown] metoclopramide HCl 10 mg PO Q6H PRN #20 tab 08/23/21 [Rx Last Taken Unknown] Allergy/AdvReac Type Severity Reaction Status Date / Time No Known Allergies Allergy Verified 08/23/21 09:36 Surgical History (Updated 08/23/21 @ 09:45 by Darryl Mansfield) Hx of right inguinal hernia repair Social History Smoking Status: Never smoker ROS ROS ED Constitutional Constitutional ED: Reports body ache(s), chills, fatigue, fever(s), headache(s), malaise and subjective Eyes Eyes: Denies change in vision or diplopia ENT ENT ED: Denies rhinorrhea or sore throat Cardiovascular Cardiovascular: Denies chest pain or palpitations Respiratory/Chest Respiratory/Chest: Reports as per HPI and cough; Denies dyspnea on exertion Gastrointestinal Gastrointestinal: Reports nausea and vomiting; Denies abdominal pain or diarrhea Genitourinary Genitourinary ED: Denies dysuria or hematuria Musculoskeletal Musculoskeletal: Denies back pain or neck pain Integumentary Denies abscess or rash Neurologic Neurologic: Reports headache(s); Denies paresthesias or weakness Psychiatric Psychiatric: Denies anxiety or suicidal thoughts EXAM Physical Exam Const Vital Signs: 08/23/21 09:36 08/23/21 09:44 Temperature 97.6 F L 97.8 F Temperature Source Temporal Temporal Pulse Rate 79 80 Respiratory Rate 16 16 Blood Pressure 136/91 H 134/78 H Blood Pressure Mean 106 96 Pulse Ox 95 Oxygen Delivery Method Room Air Positive well nourished and well developed Constitutional Narrative: Well-appearing, no distress. Conversive in full sentences without any apparent difficulty. General Appearance ED: well developed and NAD HEENT Reports EAC's normal, TM's clear and moist mucous membranes HEENT Narrative: Posterior oropharynx erythematous without exudates or tonsillar edema/asymmetry. No trismus. normocephalic and atraumatic Tympanic Membrane ED: Yes TM's clear Eyes PERRL and EOMs intact bilaterally Neck full ROM, no lymphadenopathy, supple and no meningeal signs Resp normal respiratory effort and clear to auscultation bilaterally Cardio regular rate, regular rhythm and no murmurs Rate: Negative for tachycardic GI non-tender and non-distended Auscultation: normoactive bowel sounds Palpation: soft Back/Spine no CVA tenderness General Back: other FROM Extremity normal to inspection and no calf tenderness General Extremety ED: Negative for edema, pulses abnormal or tenderness General Extremity: Negative for edema or pulses abnormal Neuro oriented x3, CN's II-XII intact bilaterally and no sensory deficits noted Sensorium / Orientation: awake and alert Motor Exam: strength 5/5 throughout Skin no rashes or lesions noted and no wounds MDM MDM MDM Narrative Medical decision making narrative: Rapid testing for Covid is negative, however there is a higher chance of false negative rapid testing during the current omicron surge. Since his influenza, rapid strep, and chest x-ray are all negative as well, we will send a Covid PCR (along with the pending strep culture) but it can be done as an outpatient since he has normal vital signs is without hypoxia and stable for discharge home. Supportive care advised as well as quarantine until the PCR returns, he was given Toradol here and Zofran which did help his symptoms some. Will prescribe him Reglan to use at home as needed. His exam is normal, I see no indication for any antibiotics at this time, nor do I think he needs other emergent work-up without having any chest discomfort. Radiography Diagnostic Testing: Clinical Impression(s) from Imaging Studies Chest X-Ray 08/23/21 10:56 IMPRESSION: Normal x-ray examination of the chest. Electronically Signed: Christopher Rob MD at 11:23 EST , Discharge Plan Triage Chief Complaint: General Illness Other Complaint: Headache ED Provider: Dipak Spencer Dx/Rx/DC Orders Clinical Impression: Acute viral syndrome Instructions: ED Viral Syndrome (Adult) Prescriptions: New metoclopramide HCl [metoclopramide HCl] 10 MG tablet 10 mg PO Q6H PRN (Reason: nausea and vomiting) Qty: 20 RF: 0 No Action Vitamin R93-[id number] Tablet 1 tab PO DAILY RF: 0 Primary Care Provider: Care Physician,No Primary Referrals: Effie Harris [NON-STAFF] - 1 Week if not improving (or your doctor if you have one; or if worse, may return to ER. ) Disposition Disposition: Home, Self Care
[2021-08-23] MEDS: Ketorolac 30 MG/ML Syringe IM (10:46)
--- NOTE | 2021-08-23 10:56 | RAD_ITS ---
STUDY: X-RAY CHEST REASON FOR EXAM: Male, 55 years old. Cough fever and quot;hard breathing and quot; TECHNIQUE: Single AP portable view of the chest. COMPARISON: Comparison is made with prior study 02/13/2021. FINDINGS: The lungs are clear and expanded. There is no demonstrated pleural abnormality. Normal size heart. Normal mediastinum and jorge. Normal visualized pulmonary arteries. Normal visualized aortic arch and descending thoracic aorta. There are degenerative changes of the visualized thoracic spine. Normal visualized ribs, clavicles, and shoulders. There is no demonstrated abnormality of the visualized soft tissue structures of the upper abdomen. RAD/Chest 1 View (Portable) IMPRESSION: Normal x-ray examination of the chest. Electronically Signed: Christopher Rob MD at 11:23 EST ,
[2021-08-23 12:04] VITALS: RESP 16
== END 2021-08-23 12:05 | disposition home or self-care (01) ==
PROVIDERS: Emergency Provider Emergency Medicine; Visit Provider Emergency Medicine
DX: B34.9 Viral infection, unspecified (principal); R51.9 Headache, unspecified; R05.9 Cough, unspecified
CPT/HCPCS: 71045; 87426; 87635; 87804; 87880; 99282; U0003; U0005

== ENCOUNTER 2021-09-05 20:00 | Emergency (ER) | payer MEDICAID, SELFPAY ==
[2021-09-05 20:00] VITALS: BP 154/129; PULSE 97; RESP 16; TEMP 36.6; O2SAT 100; BMI 19.9
--- NOTE | 2021-09-05 20:08 | EX.ED.UPPERE ---
HPI History of Present Illness Chief Complaint: Upper Extremity Injury Detail of Chief Complaint: Right hand injury about 1 hour ago Informant: patient Narrative Narrative: Patient presents to the emergency department complaint of injury to the right hand. Patient states that he was using a drill with his left hand when it kicked back and the handle struck him on the right hand. Patient is right hand dominant. Patient complains of swelling and pain and decreased range of motion with his digits. PFSH PFS Medical History Alcohol use Injury of head and neck Marijuana use Restless legs Home Medications cyanocobalamin-liver extract [Vitamin U51-[id number]] 1 tab PO DAILY 08/23/21 [History Last Taken Unknown] metoclopramide HCl 10 mg PO Q6H PRN #20 tab 08/23/21 [Rx Last Taken Unknown] hydrocodone-acetaminophen 1 tab PO Q4H PRN PRN 2 Days #15 tablet 09/05/21 [Rx Last Taken Unknown] Allergy/AdvReac Type Severity Reaction Status Date / Time No Known Allergies Allergy Verified 09/05/21 20:01 Surgical History Hx of right inguinal hernia repair Social History Smoking Status: Never smoker ROS ROS ED Constitutional Constitutional ED: Reports systems reviewed and no addt'l complaints, except as documented; Denies body ache(s), change in weight or chills Eyes Eyes: Denies acute decrease in peripheral vision, change in vision, double vision or loss of vision ENT ENT ED: Reports none; Denies ear pain, lip swelling, loss taste/smell, neck pain, otalgia or sore throat Cardiovascular Cardiovascular: Reports none; Denies abdominal pain, chest pain with activity, leg edema, lightheadedness, palpitations, rapid heart rate or syncope Respiratory/Chest Respiratory/Chest: Reports none; Denies change in mental status, dry cough, dyspnea, hemoptysis, shortness of breath at rest or shortness of breath with exertion Gastrointestinal Gastrointestinal: Reports none; Denies abdominal pain, change in stool character, diarrhea, hematemesis, hematochezia, melena, rectal bleeding or vomiting Genitourinary Genitourinary ED: Reports none; Denies abdominal discomfort, anuria, dysuria, genital pain or polyuria Musculoskeletal Musculoskeletal: Reports none and other Details: Right hand pain/injury ; Denies arthralgias, back pain, difficulty walking, extremity pain, muscle weakness or myalgias Integumentary Reports none; Denies abscess or rash Neurologic Neurologic: Reports none; Denies abnormal gait, confusion, focal weakness, frequent falls, headache(s), loss of vision, numbness, paresthesias, radicular pain, vertigo or weakness Psychiatric Psychiatric: Reports systems reviewed and no addt'l complaints, except as documented and none; Denies behavioral changes, confusion, difficulty concentrating, hallucinations, suicidal ideation, tactile hallucinations or visual hallucinations Endocrine Endocrinology: Denies none, cold intolerance, excessive sweating, fatigue or heat intolerance Hematologic/Lymphatic Hematologic/Lymphatic: Reports none; Denies anemia, easy bleeding or easy bruising Allergic/Immunologic Allergic/Immunologic ED: Denies as per HPI, none, lip swelling, mouth swelling, throat swelling, tongue swelling or hives EXAM Physical Exam Const Vital Signs: 09/05/21 20:00 Temperature 97.8 F Temperature Source Temporal Pulse Rate 97 Respiratory Rate 16 Blood Pressure 154/129 H Blood Pressure Mean 137 Pulse Ox 100 Oxygen Delivery Method Room Air Positive well nourished and well developed General Appearance ED: well developed and NAD HEENT Reports TM's clear and moist mucous membranes normocephalic and atraumatic; Negative for trauma or tenderness Tympanic Membrane ED: Yes TM's clear Eyes PERRL and EOMs intact bilaterally General Eye ED: Negative for pale conjunctiva or scleral icterus Neck no lymphadenopathy, supple and no JVD General: Negative for tenderness Chest Wall inspection of chest normal and palpation of chest normal Chest: Negative for tenderness Resp normal respiratory effort and clear to auscultation bilaterally Effort and Inspection: Negative for respiratory distress or pain with movement Auscultation: Negative for rhonchi, wheezes or diminished lung sounds Cardio regular rate, regular rhythm, S1 normal heart sound, S2 normal heart sound and no murmurs Peripheral Pulses: pulses 2+ throughout GI normal to inspection, nondistended, normoactive bowel sounds, soft to palpation, non-tender, non-distended and no masses Back/Spine no CVA tenderness and no thoracic nor lumbar tenderness Extremity Extremity Narrative: Evaluation of the right hand-patient has some diffuse soft tissue swelling over the dorsal lateral aspect of the hand with tenderness over the fourth and fifth metacarpals. Patient has discomfort over the fourth MCP joint. Decreased range of motion in flexion extension of the digits. Neurovascular intact distally. No obvious deformity. General Extremety ED: Negative for edema General Extremity: Negative for edema Neuro oriented x3, CN's II-XII intact bilaterally, no sensory deficits noted and gait normal Sensorium / Orientation: awake, alert, oriented to person, oriented to place and oriented to time Motor Exam: strength 5/5 throughout and strength abnormal Psych mental status grossly normal Skin no rashes or lesions noted and no wounds MDM MDM MDM Narrative Medical decision making narrative: Three-view x-rays of right hand obtained interpreted by myself as spiral fractures of the fourth and fifth metacarpals. Patient was placed in a ulnar gutter splint. He will be given a sling and a prescription for Soldier for pain. Patient will be referred to Ortho for follow-up. Radiography Diagnostic Testing: Three-view x-rays of right hand obtained interpreted by myself as fractures of the fourth and fifth metacarpals. Official report from radiology pending. Discharge Plan Triage Chief Complaint: Upper Extremity Injury ED Provider: Jennifer Fu Dx/Rx/DC Orders Clinical Impression: Closed hand fracture Instructions: ED Closed Hand Fracture (Adult) Prescriptions: New hydrocodone-acetaminophen [hydrocodone-acetaminophen] 1 TABLET tablet 1 tab PO Q4H PRN PRN (Reason: Pain) 2 Days Qty: 15 RF: 0 No Action Vitamin [id number] Tablet 1 tab PO DAILY RF: 0 metoclopramide HCl [metoclopramide HCl] 10 MG tablet 10 mg PO Q6H PRN (Reason: nausea and vomiting) Qty: 20 RF: 0 Primary Care Provider: Care Physician,No Primary Referrals: Joseph Chisholm DO [STAFF PHYSICIAN] - 3-5 Days Care Physician,No Primary [Primary Care Provider] - Disposition Disposition: Home, Self Care
--- NOTE | 2021-09-05 20:25 | RAD_ITS ---
INDICATION: injury EXAMINATION/TECHNIQUE: X-RAY - RIGHT XR Hand Min 3 Views 3 VIEWS COMPARISON: No prior right hand imaging. FINDINGS: SOFT TISSUES: No soft tissue swelling or gas. No radiopaque foreign body. BONES/JOINTS: Spiral fractures with relatively smooth fracture margins suggesting subacute injury involving the fourth and fifth metacarpal diaphyses. Mild degenerative changes radiocarpal articulation and first metacarpal phalangeal joint. No sclerotic or destructive changes observed. RAD/Hand Min 3 Views IMPRESSION: Spinal fractures with smooth margins fourth and fifth metacarpals with no associated soft tissue swelling suggesting subacute injury. Mild degenerative changes wrist and first metacarpophalangeal joint. Electronically Signed: Sonido Sykes DO at 21:04 EDT ,
[2021-09-05 20:58] VITALS: PULSE 87; RESP 16; O2SAT 99
[2021-09-05] MEDS: HYDROcodone Bitartrate/Apap 5/325 Tablet PO (21:04)
== END 2021-09-05 21:13 | disposition home or self-care (01) ==
PROVIDERS: Emergency Provider Emergency Medicine; Visit Provider Emergency Medicine
DX: S62.91XA Unspecified fracture of right hand, initial encounter for closed fracture (principal); W22.8XXA Striking against or struck by other objects, initial encounter
CPT/HCPCS: 73130; 99283; A4216

== ENCOUNTER 2021-11-08 09:30 | Outpatient (RCR) | payer MEDICAID, SELFPAY ==
--- NOTE | 2021-10-22 11:43 | HP.OTEVAL ---
Patient's Visit Information TABATHA LILLY is a 56 year old M, referred to Occupational Therapy by Dr. Zahira Venegas MD, with a diagnosis of right metacapal bone fx shaft 5th and 4th. 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 pt states he was given order for OT on 09/21/21 but did not schedule thearpy at that time because he wanted to do therapy on his own. (pt states he has not been using the orthosis and did not bring it with him) pt states he went back to see and she was not happy that he didn't come to therapy. pt states he has limited ability to make a fist or lift objects with his right hand. pt would like to return to using his hand. - Pain right hand 5 Pain Intensity Range: 4, 6 - ROM Wrist: right 60/50 left 55/50 Opposition: Kapandji opposition scale right 6 left 10 MP: right IF 0/80 MF 85 RF-20/90 LF-20/80left IF 0/95MF 0/95 RF 0/100 LF0/100 PIP: right IF 0/70MF0/70 RF-20/50 LF-15/45 ROM Comments: pt demo limited active ability to form a composite fist- 1 away - Strength Storage Battery Inspector And Tester: right40# left 90* Lateral Pinch: right 10 left 14# Tripod Pinch: right 8# left 12# Tip-to-Tip Pinch: right 6# left 8# Strength Comments: pt demo with weakness of right juvenile justice specialist strength - Sensation Sensation Comments: reports tingling along ulnar side of LF. denies other - Quick DASH-Disab of Arm,Shoulder& Hand Quick DASH Score: 70.4525 - Goals Goal:100% adherence to protocol: Yes Comment: Dr. Zahira Venegas ORIF of Metacarpal fx Goal:Daily scar massage when approriate: Yes Goal:ROM equal to unaffected hand: Yes Goal:Storage Battery Inspector And Tester/Pinch strength at least 75% of unaffected hand: Yes Goal:No pain with affected hand use: Yes Goal:Full use of affected hand in daily activities including: Yes - Rehabilitation General Assessment: pt arrives to initial OT eval 5 weeks 3 days from sx. with limited right hand ROM and weakness increasing need of assist with IADLs and ADLS. pt would benefit from skilled OT services 2x week for 4 weeks to return pt to PLOF. pt and pts demo understanding and agree to POC. Rehabilitation Potential: Excellent - Anticipated Interventions A/AAROM/PROM, Strengthening, Scar Care, Triggerpoint Release, Modalities, Orthoses, Joint Protection/Energy Conservation, Fine Motor Coord/Anson, Home Program, Other - Visit Plan Frequency: 2x /Week Duration: 4 Weeks TEXT: Thank you for the opportunity to evaluate your patient. For Medicare and Medicare HMO plans, please review the plan of care and approve it. It will need to be FAXED BACK to us at [phone] for Medicare purposes. Please let me know if there are questions or concerns regarding this plan of care. Physician Signature: Date:
--- NOTE | 2021-11-10 09:01 | HP.OTREVAL ---
Dr. Zahira Venegas MD, It has been my pleasure to treat TABATHA DAS ARMS over the last 4 visits for right metacapal bone fx shaft 5th and 4th. Please see the progress note below for an update on the occupational therapy plan of care! Subjective: pt. is 8 weeks post ORIF sx. pt. reports that he is not wearing splint at night. pt. stating he has a doctor appoinment sometime this month, S/OT asked pt. to let us know when so we can send a report to dr. Pt. states he still has a difficult time opening jars. 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 R RF PIP-. R PF PIP -*. R composite fist. improved inspector semiconductor wafer, composite fist, and R PF PIP flexion. Pt. has participated with stretching, using orthotic, and today started strengthening. Plan Frequency: 2x /Week Duration: 2 Weeks Plan: week 8. R hand stretching/strengthening. Dr. Zahira Venegas ORIF of Metacarpal fx Goals - Goals Patient Goals: Regain Mobility, Regain Strength, Decrease Pain Goal:100% adherence to protocol: Yes Goal:Daily scar massage when approriate: Yes Goal:ROM equal to unaffected hand: Yes Goal:Silverware Assembler/Pinch strength at least 75% of unaffected hand: Yes Goal:No pain with affected hand use: Yes Goal:Full use of affected hand in daily activities including: Yes Anticipated Interventions Anticipated Interventions: A/AAROM/PROM, Strengthening, Scar Care, Triggerpoint Release, Modalities, Orthoses, Joint Protection/Energy Conservation, Fine Motor Coord/Anson, Home Program, Other Please do not hesitate to contact me at [phone] by phone or if you have questions or concerns regarding this new plan of care! Sincerely, Li Dominique, OTR/L, CHT
--- NOTE | 2022-03-29 13:57 | HP.OT.NRP ---
TABATHA DAS MAXX was seen in my office for initial evaluation on 10/22/21. The following Plan of Care was established for this patient: Initial Frequency: 2x /Week Initial Duration: 2 Weeks Plan: week 8. R hand stretching/strengthening. Dr. Zahira BUCHANAN of [facility] Anticipated Interventions: A/AAROM/PROM, Strengthening, Scar Care, Triggerpoint Release, Modalities, Orthoses, Joint Protection/Energy Conservation, Fine Motor Coord/[place], Home Program, Other This patient was last seen in our office 11/08/21. Pertinent comments regarding their Occupational therapy will appear below: pt was seen for 4 OT sessions- last two pt no showed. pt did not schedule further apts and at this time due to time lapse in services pt d/c. At this point I will be discontinuing this patient from occupational therapy. I would be happy to see this patient again in the future if found appropriate by the physician. Thank you! Li Dominique, OTR/L, CHT
== END 2021-11-08 19:00 | disposition home or self-care (01) ==
LOC: OT 09:30
PROVIDERS: Referring Provider Orthopaedic Surgery Hand Surgery; Visit Provider Orthopaedic Surgery Hand Surgery
DX: S62.326D Displaced fracture of shaft of fifth metacarpal bone, right hand, subsequent encounter for fracture with routine healing (principal); S62.324D Displaced fracture of shaft of fourth metacarpal bone, right hand, subsequent encounter for fracture with routine healing
CPT/HCPCS: 97110; 97166

== ENCOUNTER 2022-11-16 02:51 | Emergency (ER) | payer MEDICAID, SELFPAY ==
[2022-11-16 02:52] VITALS: BP 130/86; PULSE 61; RESP 15; TEMP 36.2; O2SAT 98; BMI 18.6
--- NOTE | 2022-11-16 03:11 | EX.ED.VIS.EY ---
HPI History of Present Illness Chief Complaint: Eye Problem Detail of Chief Complaint: Bilateral eye pain after welding. Informant: patient and spouse/S.O. Onset/Context/Timing Location: Bilateral Eyes Onset: Today and Hours Context: Gradual Onset Timing: Continuous Current Severity: Moderate Maximum Severity: Moderate Associated Symptoms Associated Symptoms - Eyes: Burning, Pain, Photophobia and Redness History of injury: Welding injury Visual correction: None Narrative Narrative: 57-year-old male no seen past medical history. No prior eye surgeries. He does not wear contacts or glasses. 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 In the last several hours he started having significant eye pain. Worse with lights. Denies any direct trauma. No discharge. They are watering more. Prior history of the same with ultraviolet keratitis. Prior similar symptoms: Yes Recent Illness/Hospitalization: No PFSH PFSH Medical History Alcohol use Injury of head and neck Marijuana use Restless legs Home Medications hydrocodone-acetaminophen 5-325mg 5mg-325mg 1 tab PO Q4H PRN PRN Pain 2 days #15 TABLETS 09/05/21 [Rx Last Taken Unknown] ibuprofen 200 mg capsule 200 mg PO Q6H PRN 09/08/21 [History Last Taken Unknown] Allergy/AdvReac Type Severity Reaction Status Date / Time No Known Allergies Allergy Verified 09/08/21 11:17 Surgical History Hx of right inguinal hernia repair Social History Smoking Status: Never smoker ROS ROS ED ROS Narrative Denies recent illness. Photophobia. Eyes watering. Review of Systems ROS Unobtainable: Denies due to encephalopathy Constitutional Constitutional ED: Denies chills or fever(s) Eyes Eyes: Denies blurry vision ENT ENT ED: Denies ear pain Cardiovascular Cardiovascular: Denies chest pain Respiratory/Chest Respiratory/Chest: Denies cough or dyspnea Gastrointestinal Gastrointestinal: Denies abdominal pain Genitourinary Genitourinary ED: Denies dysuria Musculoskeletal Musculoskeletal: Denies arthralgias Integumentary Denies abscess Neurologic Neurologic: Denies headache(s) Psychiatric Psychiatric: Denies anxiety or depression Endocrine Endocrinology: Denies polydipsia Hematologic/Lymphatic Hematologic/Lymphatic: Denies easy bleeding Allergic/Immunologic Allergic/Immunologic ED: Denies mouth swelling or tongue swelling EXAM Physical Exam Narrative Exam Narrative: [id number] male vital signs stable afebrile. His eyes covered. H EENT exam pupils round reactive light extra motions are intact. No periorbital swelling or redness. No proptosis. Both eyes are watering. They are injected. There is no discharge. Exam and history consistent with ultraviolet keratitis. Otherwise exam unremarkable. No facial swelling. No preauricular lymphadenopathy. Const Vital Signs: 11/16/22 02:52 Temperature 97.1 F L Temperature Source Temporal Pulse Rate 61 Respiratory Rate 15 Blood Pressure 130/86 H Blood Pressure Mean 100 Pulse Ox 98 Oxygen Delivery Method Room Air Positive well nourished and well developed; Negative for cachectic, contractures or unkempt General Appearance ED: well developed; Negative for unkempt, cachectic, contractures or NAD Nutritional Appearance: Negative for cachectic HEENT HEENT Narrative: Bilateral eyes watering. Injected. Photophobic. Extraocular motions intact. atraumatic; Negative for trauma or tenderness Neck no lymphadenopathy, supple and no JVD General: Negative for tenderness Resp normal respiratory effort, no retractions, no use of accessory muscles and clear to auscultation bilaterally Cardio regular rate, regular rhythm, S1 normal heart sound, S2 normal heart sound and no murmurs GI non-tender, non-distended and no masses Inspection: Negative for other Auscultation: normoactive bowel sounds Back/Spine no CVA tenderness Extremity normal to inspection General Extremety ED: Negative for edema General Extremity: Negative for edema Neuro oriented x3, CN's II-XII intact bilaterally and moves all extremities Sensorium / Orientation: alert, oriented to person, oriented to place and oriented to time; Negative for orientation impaired Motor Exam: strength 5/5 throughout Psych Appearance: Negative for unkempt Attitude: No agitated Mood & Affect: Negative for depressed, anxious or tearful Skin no wounds Lesions: no lesions Rashes: no rashes Trauma: Negative for abrasion, laceration or puncture MDM MDM MDM Narrative Medical decision making narrative: Patient with history and exam consistent with ultraviolet keratitis. Tetracaine in both eyes and can use it for the next 24 hours. Motrin and Tylenol for pain. Follow-up with eye doctor as needed. Sunglasses to prevent glare. 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 Always use protective eye gear or shield while welding. Sunglasses to prevent glare currently to help with the pain. Motrin for pain and inflammation and Tylenol for pain. Eyedrops called tetracaine you can use 2 to 3 drops to each eye every couple hours for the next 24 hours. This will decrease the pain. After 24 hours you cannot continue to use the drops because they can prevent healing. This should progressively improve. Follow-up with the eye doctor if not improving. Disposition Disposition: Home, Self Care
[2022-11-16] MEDS: Tetracaine 0.5% Ophthalmic Bottle 3 DRP EACH EYE (03:51)
== END 2022-11-16 03:53 | disposition home or self-care (01) ==
LOC: ED 03:23
PROVIDERS: Emergency Provider Emergency Medicine; Visit Provider Emergency Medicine
DX: L57.8 Other skin changes due to chronic exposure to nonionizing radiation (principal); W89.0XXA Exposure to welding light (arc), initial encounter; Z79.1 Long term (current) use of non-steroidal anti-inflammatories (NSAID)
CPT/HCPCS: 99282

== ENCOUNTER 2024-11-11 11:30 | Emergency (ER) | payer MEDICAID, SELFPAY ==
[2024-11-11 11:31] VITALS: BP 146/101; PULSE 71; RESP 14; TEMP 36.6; O2SAT 100; BMI 18.8
--- NOTE | 2024-11-11 12:14 | EX.ED.DYSGE1 ---
HPI History of Present Illness Chief Complaint: Dental Informant: patient Narrative Narrative: 59-year-old male presenting to the emergency room with facial pain. Patient states for the past several days he has had a pain on the left upper face/posterior molar tooth. Patient notes that he has had problems with this tooth in the past. He does not have a dentist has not called the dentist. He states the pain seems worse with touch. No reported fevers. PFSH PFSH Medical History Alcohol use Marijuana use Restless legs Injury of head and neck Home Medications ?Medication ?Instructions ?Recorded ?Last Taken ?Type hydrocodone-acetaminophen 5-325mg 1 tab PO Q4H PRN PRN Pain 2 days 09/05/21 Unknown Rx 5mg-325mg #15 TABLETS ibuprofen 200 mg capsule 200 mg PO Q6H PRN 09/08/21 Unknown History hydrocodone-acetaminophen 5-325mg 1 tab PO Q6H PRN pain 3 days #12 11/11/24 Unknown Rx 5mg-325mg tabs penicillin V potassium 500 mg 500 mg PO 4X/DAY #40 tabs 11/11/24 Unknown Rx tablet Allergy/AdvReac Type Severity Reaction Status Date / Time No Known Allergies Allergy Verified 11/11/24 11:31 Surgical History Hx of right inguinal hernia repair Social History Smoking Status: Never smoker ROS [facility] ED Constitutional Constitutional ED: Denies chills, fever(s) or weight loss Eyes Eyes: Denies change in vision or diplopia ENT ENT ED: Reports other Details: Facial pain dental pain ; Denies ear pain, rhinorrhea or sore throat Cardiovascular Cardiovascular: Denies chest pain, orthopnea, palpitations or racing heartbeat Respiratory/Chest Respiratory/Chest: Denies cough, dyspnea or orthopnea Gastrointestinal Gastrointestinal: Denies abdominal pain, diarrhea, nausea or vomiting Genitourinary Genitourinary ED: Denies dysuria, hematuria or urinary frequency Musculoskeletal Musculoskeletal: Denies arthralgias or myalgias Integumentary Denies abscess or rash Neurologic Neurologic: Denies headache(s) or weakness Psychiatric Psychiatric: Denies anxiety, depression, suicidal ideation or suicidal thoughts Endocrine Endocrinology: Denies polydipsia, polyphagia or polyuria Allergic/Immunologic Allergic/Immunologic ED: Denies mouth swelling, tongue swelling or urticaria EXAM Physical Exam Const Vital Signs: 11/11/24 11:31 Temperature 98 F Temperature Source Temporal Pulse Rate 71 Respiratory Rate 14 Blood Pressure 146/101 H Blood Pressure Mean 116 Pulse Ox 100 Oxygen Delivery Method Room Air Positive well nourished and well developed General Appearance ED: well developed HEENT Reports normocephalic, head/scalp atraumatic and moist mucous membranes HEENT Narrative: Left upper posterior molar demonstrates very focal decay most of the tooth is black. I do not appreciate any gumline swelling. It is very tender on palpation. There is no trismus. No overlying facial swelling or erythema. Eyes PERRL and EOMs intact bilaterally Neck no lymphadenopathy, supple and no JVD Resp normal respiratory effort and clear to auscultation bilaterally Cardio regular rate, regular rhythm and no murmurs GI normal to inspection, nondistended, normoactive bowel sounds and non-tender Palpation: soft Back/Spine no CVA tenderness and normal ROM Extremity normal to inspection General Extremety ED: Negative for edema General Extremity: Negative for edema Neuro oriented x3 and CN's II-XII intact bilaterally Sensorium / Orientation: alert Motor Exam: strength 5/5 throughout Psych mental status grossly normal Mood & Affect: Negative for depressed or tearful Skin no rashes or lesions noted and no wounds MDM MDM MDM Narrative Medical decision making narrative: Differential diagnosis includes but not limited to facial cellulitis dental abscess pulpitis cavity dental decay dental fracture Patient was started on Pen-Vee K as well as some pain medication. Would recommend mended anti-inflammatories as well. He needs to see dentistry as soon as possible. Patient understands this plan is comfortable with it History & Record Review Discussion w/independent historian: Patient Additional record(s) reviewed:: Prior ED visit and Prior labs Discharge Plan Triage Chief Complaint: Dental ED Provider: Oscar Genao Dx/Rx/DC Orders Clinical Impression: Pain, dental, Acute pulpitis Instructions: ED Dental Pain, ED Dental Cavity Prescriptions: New hydrocodone-acetaminophen 5-325 mg tablet 1 tab PO Q6H PRN (Reason: pain) 3 Days Qty: 12 0RF penicillin V potassium 500 mg tablet 500 mg PO 4X/DAY Qty: 40 0RF No Action ibuprofen 200 mg capsule 200 mg PO Q6H PRN hydrocodone-acetaminophen [hydrocodone-acetaminophen] 1 TABLET tablet 1 tab PO Q4H PRN PRN (Reason: Pain) 2 Days Qty: 15 0RF Primary Care Provider: Care Physician,No Primary Referrals: Care Physician,No Primary [Primary Care Provider] - Activity Restrictions/Additional Instructions: You need to follow-up with dentistry as soon as possible. Print Language: Yi Disposition Disposition: Home, Self Care
[2024-11-11] MEDS: HYDROcodone Bitartrate/Apap 5/325 Tablet PO (12:30)
[2024-11-11] MEDS: Penicillin Vk 250 MG Tablet 500 MG PO (12:30)
--- NOTE | 2024-11-11 13:11 | CM.ED ---
Social Work SW met with patient, patient stated he did not currently have a PCP or a dentist. SW provided [facility] provider list and dental resources. No further needs identified at this time. Razia Evangelista, [employer], [employer] SAL[employer]
== END 2024-11-11 12:33 | disposition home or self-care (01) ==
PROVIDERS: Emergency Provider Emergency Medicine; Visit Provider Emergency Medicine
DX: K08.89 Other specified disorders of teeth and supporting structures (principal); K04.01 Reversible pulpitis; R51.9 Headache, unspecified
CPT/HCPCS: 99282